=== PATIENT | male | born 1985 | race African-American/Black ===

== ENCOUNTER 2021-06-14 12:19 | Emergency (ER) | payer BC ==
[2021-06-14 12:23] VITALS: BP 147/83; PULSE 97; TEMP 98; BMI 34.2
[2021-06-14] MEDS ORDERED: ACETAMINOPHEN 325 MG TABLET (FP) ONE (13:14)
[2021-06-14 14:13] LABS: BASO % 0.7 % (0-2.0); EOS % 1.7 % (0-4.5); HEMATOCRIT 46.1 % (35.4-49); HEMOGLOBIN 15.4 GM/dL (11.7-16.9); LYMPH % 19.4 % (8-40); MCH 26.9 pg (25.7-33.7); MCHC 33.5 g/dl (32.0-35.9); MEAN CELL VOLUME 80.5 fl (80-96); MEAN PLT VOLUME 8.6 fl (7.5-11.1); MONO % 4.5 % (3.8-10.2); NEUT % 73.7 % (42.8-82.8); PLATELET COUNT 311 10^3/uL (134-434); RBC 5.73 M/mm3 (4.00-5.60); WHITE BLOOD COUNT 9.9 K/mm3 (4.0-10.0)
[2021-06-14 14:35] LABS: CHLORIDE 104 mmol/L (98-107); SODIUM 138 mmol/L (136-145)
[2021-06-14 14:41] LABS: CALCIUM 9.8 mg/dL (8.5-10.1)
[2021-06-14 14:42] LABS: ALBUMIN 4.6 g/dl (3.4-5.0); ANION GAP 3 MMOL/L (8-16); BLOOD UREA NITROGEN 10.8 mg/dL (7-18); CO2 32 mmol/L (21-32); GLUCOSE,RANDOM 83 mg/dL (74-106)
[2021-06-14 14:45] LABS: CREATININE 0.9 mg/dL (0.55-1.3); SGOT/AST 21 U/L (15-37); SGPT/ALT 42 U/L (13-61)
[2021-06-14 14:46] LABS: BILIRUBIN,TOTAL 0.5 mg/dL (0.2-1)
[2021-06-14 14:47] LABS: TOT PROT 8.5 g/dl (6.4-8.2)
[2021-06-14 14:48] LABS: ALK PHOS 95 U/L (45-117)
== END 2021-06-14 16:15 | disposition home or self-care (01) ==
LOC: JER 12:19
DX: R00.2 Palpitations (principal)
CPT/HCPCS: 36415; 71046-TC-FY; 80053; 84443; 84484; 85025; 85379; 93005; 93010; 99285-25

== ENCOUNTER 2021-11-07 20:50 | Emergency (ER) | payer BC ==
[2021-11-07 21:02] VITALS: BP 147/95; PULSE 97; TEMP 98.7; BMI 35.5
[2021-11-07] MEDS ORDERED: DIPHTH,PERTUSS(ACELL),TET 0.5 ML DISP.SYRIN IM ONE ×2 (22:35→23:53)
[2021-11-07] MEDS ORDERED: ACETAMINOPHEN 325 MG TABLET (FP) PO ONE (23:13)
[2021-11-07] MEDS ORDERED: ACETAMINOPHEN 325 MG TABLET (FP) ONE (23:52)
== END 2021-11-08 01:43 | disposition home or self-care (01) ==
LOC: JER 20:50
PROC: 3E0234Z Introduction of Serum, Toxoid and Vaccine into Muscle, Percutaneous Approach (ICD-10-PCS; principal; 2021-11-07)
DX: M25.531 Pain in right wrist (principal); M25.532 Pain in left wrist
CPT/HCPCS: 70450-TC; 73110-TC-LT-FY; 73110-TC-RT-FY; 73130-TC-LT-FY; 73130-TC-RT-FY; 90715; 99284-25

== ENCOUNTER 2022-09-12 15:58 | Emergency (ER) | payer BC ==
[2022-09-12 16:03] VITALS: BP 124/75; PULSE 64; RESP 18; TEMP 98; BMI 35.5
[2022-09-12] MEDS ORDERED: predniSONE 20 MG TABLET (UD) PO ONE (17:20)
[2022-09-12] MEDS ORDERED: diphenhydrAMINE HCL 50 MG CAPSULE PO ONE (17:20)
[2022-09-12] MEDS ORDERED: predniSONE 20 MG TABLET (UD) ONE (17:23)
[2022-09-12] MEDS ORDERED: diphenhydrAMINE HCL 25 MG CAPSULE (FP) PO ONE (17:23)
== END 2022-09-12 18:46 | disposition home or self-care (01) ==
LOC: JERFT 15:58
DX: R22.0 Localized swelling, mass and lump, head (principal)
CPT/HCPCS: 99283-25